=== PATIENT | male | born 1980 | race Two or more races ===

== ENCOUNTER 2016-08-17 18:17 | Emergency (ER) | payer SELFPAY ==
[2016-08-17] MEDS ORDERED: NALOXONE HYDROCHLORIDE 0.4 MG/ML SOL IV ONE (18:18)
[2016-08-17 18:27] LABS: BASOPHILS % (AUTO) 1 % (0-3); EOSINOPHILS % (AUTO) 1 % (0-9); HEMATOCRIT 37 % (39-53); MEAN CORPUSCULAR HGB CONC 35.2 gm/dl (32.0-36.0); MEAN CORPUSCULAR VOLUME 87 fL (80-100); NEUTROPHILS % (AUTO) 62.2 % (37-80)
[2016-08-17] MEDS ORDERED: SODIUM CHLORIDE 0.9% 1000 ML SOL IV ONE (18:31)
[2016-08-17] MEDS ORDERED: THIAMINE 100 MG/ML 100 MG/ML SOL ONE (18:32)
[2016-08-17] MEDS ORDERED: THIAMINE 100 MG/ML 100 MG/ML SOL IV ONE (18:37)
[2016-08-17 18:41] LABS: ALBUMIN 3.9 gm/dl (3.4-5.0); CALCIUM 8.7 mg/dl (8.5-10.1); POTASSIUM 3.3 mMol/L (3.5-5.1)
[2016-08-17] MEDS ORDERED: SODIUM CHLORIDE 0.9% FLUSH 10 ML SOL IV PRN (19:08)
[2016-08-17 19:17] LABS: AMPHETAMINES POSITIVE (NEGATIVE); METHADONE NEGATIVE (NEGATIVE); METHAMPHETAMINES POSITIVE (NEGATIVE); OPIATES(OP13) NEGATIVE (NEGATIVE); OXYCODONE(OXY) NEGATIVE (NEGATIVE); PROPOXYPHENE(PPX) NEGATIVE (NEGATIVE); TRICYCLIC ANTIDEPRESSANTS NEGATIVE (NEGATIVE)
[2016-08-17] MEDS ORDERED: CEFAZOLIN SODIUM 1 GM PDS ONE (19:35)
[2016-08-17] MEDS ORDERED: ONDANSETRON HCL 4 MG/2 ML SOL IV ONE (19:41)
[2016-08-17] MEDS ORDERED: ONDANSETRON HCL 4 MG/2 ML SOL ONE (19:42)
[2016-08-17] MEDS ORDERED: CEFAZOLIN SODIUM 1 GM PDS 1 GM in SODIUM CHLORIDE 0.9% 100 ML 100 ML IV SCH (19:45)
[2016-08-17 19:53] VITALS: TEMP 97.6; O2SAT 100
[2016-08-17 19:57] VITALS: BP 125/73; PULSE 89; RESP 18
[2016-08-17] MEDS ORDERED: TDAP VACCINE 0.5 ML SUS IM ONE ×2 (19:57→19:59)
== END 2016-08-17 20:17 | disposition short-term general hospital (02) | DRG 154 ==
LOC: ED 18:17
DX: S02.2XXA Fracture of nasal bones, initial encounter for closed fracture (principal); R40.2342 Coma scale, best motor response, flexion withdrawal, at arrival to emergency department; R40.2222 Coma scale, best verbal response, incomprehensible words, at arrival to emergency department; S06.899A Other specified intracranial injury with loss of consciousness of unspecified duration, initial encounter; R40.2132 Coma scale, eyes open, to sound, at arrival to emergency department; S02.19XA Other fracture of base of skull, initial encounter for closed fracture; S02.32XA Fracture of orbital floor, left side, initial encounter for closed fracture; V86.59XA Driver of other special all-terrain or other off-road motor vehicle injured in nontraffic accident, initial encounter; S01.511A Laceration without foreign body of lip, initial encounter
CPT/HCPCS: 70450; 70486; 71010; 72125; 80053; 80305; 80307; 82550; 84484; 85025; 85610; 85730; 90715; 93005; 99291; J0690; J2405